=== PATIENT | female | born 1995 | race Caucasian/White ===

== ENCOUNTER 2018-12-17 21:42 | Inpatient (IN) ==
[2018-12-17] MEDS ORDERED: ZOFRAN ODT PO ONE (22:08)
[2018-12-17] MEDS ORDERED: ZOFRAN ODT ONE (22:08)
[2018-12-17 22:49] LABS: INFLUENZA A NEGATIVE (NEGATIVE); INFLUENZA B NEGATIVE (NEGATIVE)
[2018-12-17] MEDS ORDERED: NS 1,000 ML IV ONE ×2 (23:09→23:58)
[2018-12-17] MEDS ORDERED: PHENERGAN IV ONE (23:09)
[2018-12-17] MEDS ORDERED: SODIUM CHLORIDE 0.9% INJ ONE (23:09)
--- NOTE | 2018-12-17 23:17 | PROVIDER DOCUMENTATION ---
HPI-Abdominal Pain/GI Problem - General Chief Complaint: Flu Symptoms Stated Complaint: FLU LIKE SX Time Seen by Provider: 12/17/18 22:59 Source: patient Allergies/Adverse Reactions: Patient Allergies Allergy/AdvReac Type Severity Reaction Status Date / Time latex Allergy ITCHING Verified 11/21/16 14:15 Home Medications: Home Medication List Medication Instructions Recorded Confirmed Last Taken Type Hydrocodone/APAP 5 mg/325 mg 1 each PO Q6H PRN PRN #20 tablet 12/31/16 Unknown Rx [[place]-5] - History of Present Illness-ABD Nature of Presenting Problems: THIS IS A 23 YEAR OLD FEMALE CAME IN TODAY WITH CONCERN OF DIARRHEA FOR PAST 1 WEEK (DENIES ON ANTIBIOTICS IN PAST 6 MONTHS) AND ALSO TODAY STARTED HAVING SUDDEN ONSET OF NUMEROUS NONBLOODY VOMITING WHILE AT WORK TODAY AROUND 6PM AND ALSO FEELING NAUSEOUS. PATIENT DENIES FEVER, CHILL, NIGHT SWEATS, DIZZINESS, LIGHTHEADEDNESS, BLURRY VISION, CHEST DISCOMFORT, PALPITATION, DYSPNEA, ABDOMINAL DISCOMFORT, MYALIGA, ARTHRLAIAG, NEW RAHS/LESION, AND HEAT OR COLD INTOLERANCE. Abdominal Pain Onset Location: reports: other (DENIES ABDOMINAL DISCOMFORT.) Review of Systems - Adult - REVIEW OF SYSTEMS - ADULT Constitutional: denies: chills, fever, night sweats Eyes: reports: no symptoms reported Ears, Nose, Mouth & Throat: reports: no symptoms reported Cardiovascular: reports: no symptoms reported Respiratory: reports: no symptoms reported Gastrointestinal: reports: diarrhea, nausea, vomiting Genitourinary: reports: no symptoms reported Musculoskeletal: reports: no symptoms reported Integumentary: reports: no symptoms reported Neurological: reports: no symptoms reported Psychiatric: reports: no symptoms reported Endocrine: reports: no symptoms reported Hematologic/Lymphatic: reports: no symptoms reported Allergic/Immunologic: reports: no symptoms reported Past History - Adult - PAST MEDICAL HISTORY-ADULT Review of Records: reports: Old Records Reviewed - PRIOR SURGERIES/PROCEDURES Surgical/Procedure History: reports: tonsillectomy - IMMUNIZATION STATUS Childhood Immunizations: See Nurse Assessment Flu Vaccine: See Nurse Assessment - FAMILY HISTORY Family History: reviewed, not pertinent Physical Exam-General - PHYSICAL EXAM-ADULT Initial Vital Signs Reviewed: Yes - CONSTITUTIONAL General Appearance: alert, mild distress (VOMITING.) - EYES Eyes: PERRL/EOMI - HEAD, EARS, NOSE, MOUTH & THROAT HENMT: normocephalic/atraumatic, moist mucous membranes - NECK Neck: non-tender, full range of motion, supple - RESPIRATORY Respiratory: chest non-tender, lungs clear, normal breath sounds, no pleuratic chest pain, no respiratory distress, no accessory muscle use - CARDIOVASCULAR Cardiovascular: normal peripheral pulses, regular rate, rhythm, no edema, no gallop, no JVD, no murmur - GASTROINTESTINAL (ABDOMEN) Abdominal Exam: normal bowel sounds, non tender (NONTENDER ON PALPATION AT ANY QUADRANT.), soft - MUSCULOSKELETAL Back Exam: normal inspection, no CVA tenderness, no vertebral tenderness Extremity: normal range of motion, non-tender, normal gait - SKIN Integumentary: normal color, normal turgor - NEUROLOGIC Neurologic: grossly normal - PSYCHIATRIC Psych/Mental Status: normal mood/affect, normal thought content, normal thought process, oriented x 3 Progress - PLAN OF CARE/RESULTS Progress/Plan/Lab Results: Vital Signs - 8 hr 12/17/18 21:48 Temperature 97.6 F Pulse Rate 69 Respiratory Rate 18 Blood Pressure 146/081 O2 Sat by Pulse Oximetry 100 Laboratory Results - last 24 hr 12/17/18 22:10 Influenza A (Rapid) NEGATIVE Influenza B (Rapid) NEGATIVE Orders Category Date Time Status ABDOMEN FLAT/UPRIGHT [RAD] Stat Exams 12/17/18 23:08 Ordered AMYLASE [CHEM] Stat Lab 12/17/18 23:08 Ordered C DIFF ANTIGEN PL Stat Lab 12/17/18 23:10 Ordered CBC WITH ELECTRONIC DIFF [HEME] Stat Lab 12/17/18 23:08 Uncollected COMPREHENSIVE METABOLIC PANEL [CHEM] Stat Lab 12/17/18 23:08 Uncollected Flu [INFLUENZA SCREEN PL] Stat Lab 12/17/18 22:10 Completed LIPASE [CHEM] Stat Lab 12/17/18 23:08 Uncollected MAGNESIUM [CHEM] Stat Lab 12/17/18 23:[address] W/POSS RFLX CULT [URINALYSIS] Stat Lab 12/17/18 23:08 Uncollected URINE DRUG SCREEN PL Stat Lab 12/17/18 23:13 Uncollected 0.9% Sodium Chloride Inj [Ns] 1,000 ml Med 12/17/18 23:09 Active IV 999 mls/hr Ondansetron Odt [Zofran Odt] Med 12/17/18 22:08 Discontinued 4 mg .ROUTE .STK-MED ONE Ondansetron Odt [Zofran Odt] Med 12/17/18 22:08 Discontinued 4 mg PO NOW ONE Promethazine [Phenergan] Med 12/17/18 23:09 Discontinued 25 mg IV NOW ONE Sodium Chloride 0.9% Med 12/17/18 23:09 Discontinued 10 ml INJ NOW ONE Result Diagrams: 12/17/18 23:15 12/17/18 23:15 - REASSESSMENT Reassessment #1 Time Reassessed: 01:25 Status: other (PATIENT IS RESTING COMOFRTABLY IN BED IN NO DISTRESS; STATES FLUID HELPS. PENDING FOR CT RESULT TO RETURN. PATIENT POSITIVE FOR CANNABIS; WHICH CAN CERTAINLY CAUSE HER VOMITING.) Reassessment #2 Time Reassessed: 02:11 Status: other (SPOKE TO HOSPITALIST; APPRECIATE THEIR ASSISTANCE.) Departure - Departure Date of Disposition Decision: 12/18/18 Time of Disposition Decision: 02:12 DIAGNOSIS: Vomiting, Elevated WBCs Disposition: ADMITTED INPATIENT 09 Certified Medical Emergency: Emergent Condition: Fair Referrals and Follow-Ups: None,PCP [Primary Care Provider] - - Critical Care Note This patient required my direct & personal management of CC.: No Attestation - Physician/ ZOË Attestation Patient care was provided by Advanced Practice Provider:: No The physician spent face to face time with patient:: Yes Advanced Practice Provider documentation review:: Supervising physician onsite and consulted in the evaluation and care of this patient. The physician did have a face to face encounter with the patient.
[2018-12-17 23:37] LABS: BASO# 0.02 X1000 (0.0-0.2); BASO% 0.1 % (0.0-0.8); HEMATOCRIT 37.2 % (37.0-47.0); IMM GRAN# 0.06 X1000 (0.0-0.04); IMM GRAN% 0.3 % (0.0-0.5); LYMPH# 1.27 X1000 (1.2-3.4); LYMPH% 5.8 % (20.5-51.1); MCH 29.4 PG (27-31); MCHC 34.9 g/dL (33-37); MCV 84.2 FL (81-99); MONO# 0.57 X1000 (0.11-0.59); MONO% 2.6 % (1.7-9.3); MPV 11.2 FL (7.4-10.4); NEUT# 20.07 X1000 (1.4-6.5); NEUT% 91.2 % (42.2-75.2); PLT 196 X1000 (130-400); RBC 4.42 XMIL (4.2-5.4); RDW 12.1 % (11.5-14.5); WBC 21.99 X1000 (4.8-10.8)
[2018-12-17 23:53] LABS: AGAP 14; ALBUMIN 4.6 g/dL (3.5-5.0); ALKALINE PHOSPHATASE 57 U/L (32-104); AMYLASE 32 U/L (20-200); BUN 13 mg/dL (8-22); CALCIUM 8.6 mg/dL (8.8-10.2); CHLORIDE 102 mmol/L (98-107); COSMO 278; CREATININE 0.6 mg/dL (0.5-0.9); ESTIMATED GFR > 60; GLUCOSE 174 mg/dL (70-104); GOT 31 U/L (10-30); GPT 28 U/L (10-36); LIPASE 13 U/L (13-60); MAGNESIUM 1.9 mg/dL (1.5-2.7); POTASSIUM 4.6 mmol/L (3.5-5.1); SODIUM 137 mmol/L (136-145); TCO2 21 mmol/L (25-35); TOTAL PROTEIN 6.7 g/dL (6.3-8.3)
[2018-12-18 00:24] LABS: BILIRUBIN URINE NEGATIVE (NEGATIVE); BLOOD URINE NEGATIVE (NEGATIVE); CLARITY SL. CLOUDY (CLEAR); COLOR YELLOW; KETONE URINE 3+(Large) mg/dL (NEGATIVE); LEUKOCYTES URINE NEGATIVE (NEGATIVE); NITRITE URINE NEGATIVE (NEGATIVE); PROTEIN URINE NEGATIVE (NEGATIVE); UROBILINOGEN URINE NORMAL
[2018-12-18 00:26] LABS: UR AMPHETAMINES QUAL NONE DETECTED (NONE DETECT); UR BARBITUATES QUAL NONE DETECTED (NONE DETECT); UR BENZODIAZEPIN QUAL NONE DETECTED (NONE DETECT); UR CANNABINOIDS QUAL PRESUMPTIVE POSITIVE (NONE DETECT); UR COCAINE QUAL NONE DETECTED (NONE DETECT); UR METHADONE QUAL NONE DETECTED (NONE DETECT); UR METHAMPHETAMINE QUAL NONE DETECTED (NONE DETECT); UR OPIATES QUAL NONE DETECTED (NONE DETECT); UR OXYCODONE QUAL NONE DETECTED (NONE DETECT); UR PCP QUAL NONE DETECTED (NONE DETECT); UR PROPOXYPHENE QUAL NONE DETECTED (NONE DETECT); UR TCA QUAL NONE DETECTED (NONE DETECT)
[2018-12-18 00:28] LABS: URINE BACTERIA 4+ /HFP; URINE EPITHELIAL CELLS >10 /HPF (<10); URINE RBC <10 /HPF (<10); URINE SOURCE CLEAN CATCH; URINE WBC <10 /HPF (<10)
[2018-12-18] MEDS ORDERED: ZOFRAN IM ONE (02:13)
[2018-12-18] MEDS ORDERED: ZOFRAN IV ONE (02:19)
[2018-12-18] MEDS ORDERED: LOMOTIL PO PRN (08:09)
[2018-12-18] MEDS: ROCEPHIN 1 GM in NS 50 ML IV SCH (09:27)
[2018-12-18] MEDS: ZOFRAN IV PRN (09:27)
[2018-12-18] MEDS: NS 1,000 ML IV SCH (09:28)
--- NOTE | 2018-12-18 09:39 | HISTORY AND PHYSICAL ---
PRIMARY CARE PHYSICIAN: None. CHIEF COMPLAINT: Nausea, vomiting, and diarrhea for 1 week that has progressively worsened. HISTORY OF PRESENTING ILLNESS: This is a 23-year-old female who presents to [facility] ER with complaints of nausea, vomiting, and diarrhea for 1 week that has progressively worsened. It is noted that she smokes marijuana 3 to 4 times a week, drinks beer 3 times a week, and smokes a pack a day of cigarettes. She denied any dizziness, lightheadedness, blurred vision, abdominal pain. No dark, tarry stools. No melena or hematochezia. Her workup showed a white blood cell count of 21.99. Urinalysis was negative, except for 4+ bacteria, but she did have greater than 10 epithelial cells. Urine drug screen was positive for cannabinoids. Influenza A and B were negative. We did do a CT of the abdomen and pelvis that was read as normal, so she was admitted for further evaluation and treatment. PAST MEDICAL HISTORY: Spina bifida. PAST SURGICAL HISTORY: Tonsillectomy, double inguinal hernia repair, and a cholecystectomy. FAMILY HISTORY: Reviewed and noncontributory. SOCIAL HISTORY: She currently lives with her dad. Smokes 1 pack of cigarettes, and has done so for the past 12 years. Drinks beer 3 times a week, and smokes marijuana 3 to 4 times a week. ALLERGIES: Latex. HOME MEDICATIONS: She does not take any medications on a routine basis. IMAGING AND LABORATORY DATA: White blood cell count of 21.99, hemoglobin 13, hematocrit 37.2, platelets 196,000. Sodium 137, potassium 4.6, chloride 102, CO2 of 21, BUN of 13, creatinine 0.6, glucose 174. Magnesium 1.9. Lipase 13, amylase 32. Plasma lactate of 1.1. Urinalysis was negative, except for 4+ bacteria, but was also noted to have greater than 10 epithelial cells. Urine drug screen was presumptive positive for cannabinoids. Influenza A and B were both negative. CT of the abdomen and pelvis was read as normal. REVIEW OF SYSTEMS: She denied any fever, chills, blurred vision, dizziness, chest pain, coughing, shortness of breath. She was positive for nausea, vomiting, and diarrhea. Denied any abdominal pain. Denied any burning or hurting with urination. PHYSICAL EXAMINATION: VITAL SIGNS: On arrival, temperature of 97.6 degrees, pulse 69, respirations 18, blood pressure 146/81, saturating 100% on room air. GENERAL: This is a 23-year-old female who is lying in the bed and answers questions appropriately. HEENT: Normocephalic and atraumatic. Normal ENT inspection. Oropharynx and nares are clear. Eyes: Pupils are equal, round, and reactive to light and accommodation. Extraocular movements are intact. NECK: Normal inspection. Normal range of motion. LUNGS: Clear to auscultation bilaterally with equal lung expansion and chest wall movement. HEART: Regular rate and rhythm. No murmurs, rubs, or gallops. ABDOMEN: Soft, nontender, nondistended. Bowel sounds are present x4 quadrants. MUSCULOSKELETAL: She is noted to have spina bifida. NEUROLOGICAL: Cranial nerves II through XII appear grossly intact. ASSESSMENT: 1. Nausea, vomiting, and diarrhea. 2. Leukocytosis. 3. Marijuana abuse. 4. Tobacco abuse. PLAN: She was admitted to the medical unit, placed on a clear liquid diet. We are going to check a Clostridium difficile antigen. Urine culture is pending. We gave her Lomotil 1 p.o. 4 times daily p.r.n., normal saline at 125 mL an hour, Zofran 4 mg IV every 4 hours p.r.n., Rocephin 1 gram IV every 24 hours. She was noted to have some dark bile vomitus in her basin this morning. This certainly could be cyclical vomiting secondary to her marijuana abuse. We will recheck CBC and BMP in the a.m., and further orders after being seen by attending. Dictated by DUSTIN Sales for Rebecca Mckenna MD cc: DUSTIN Sales MD
--- NOTE | 2018-12-18 09:42 | Diag Imaging Result Doc PS360 ---
CT ABD/PELVIS W/IV CONT ONLY - 12/18/2018 INDICATION: N/V + WBC OF 21 COMPARISON: 12/29/2016 FINDINGS: The lung bases are clear and the heart size is normal. Stable mild nonspecific periportal edema. There are cholecystectomy clips. No biliary dilation. Other abdominal organs are all normal. No bowel obstruction or inflammation. There is a right ovarian cyst in the posterior pelvis measuring 4.3 cm. Urinary bladder and rectum are normal. Bony structures are intact. IMPRESSION: 1. Right adnexal cyst consistent with an ovarian cyst. Consider follow-up pelvic ultrasound in six weeks. 2. Nonspecific periportal edema in the liver, stable from the prior exam. This exam was performed using automated exposure control, adjustment of mA or kV according to patient size, and/or use of iterative reconstruction technique Electronically signed by Rajendra Martin 12/18/2018 9:40 AM
--- NOTE | 2018-12-18 12:17 | HISTORY AND PHYSICAL ---
ADDENDUM REPORT I saw the patient [id number] and fully agree with the assessment and plan of nurse practitioner Pamela Durant. This is a 23-year-old female who has been admitted with intractable nausea and vomiting, along with having some diarrhea and leukocytosis. She has been having marijuana abuse as well, which could contribute to her acute illness. We are going to give her clear liquids, along with IV fluid. Clostridium difficile studies are pending at this time. We will give her Lomotil on an as-needed basis for diarrhea and give her Zofran IV as needed for nausea and vomiting. Furthermore, she is being given Rocephin IV for any bacterial infection. She can probably be discharged home in the next day or 2 if she gets better. cc: Rebecca Mckenna MD
[2018-12-19 06:39] LABS: BASO# 0.01 X1000 (0.0-0.2); BASO% 0.1 % (0.0-0.8); EOS# 0.03 X1000 (0.0-0.7); EOS% 0.3 % (0.0-10.0); IMM GRAN# 0.01 X1000 (0.0-0.04); IMM GRAN% 0.1 % (0.0-0.5); LYMPH% 22.7 % (20.5-51.1); MCH 28.7 PG (27-31); MCHC 33.3 g/dL (33-37); MCV 86.1 FL (81-99); MONO# 0.73 X1000 (0.11-0.59); MONO% 6.9 % (1.7-9.3); MPV 11.7 FL (7.4-10.4); NEUT% 69.9 % (42.2-75.2); PLT 172 X1000 (130-400); RBC 4.18 XMIL (4.2-5.4); RDW 12.4 % (11.5-14.5); WBC 10.58 X1000 (4.8-10.8)
[2018-12-19] MEDS: NS 1,000 ML IV SCH ×3 (06:54→21:43)
[2018-12-19 06:57] LABS: AGAP 12; BUN 12 mg/dL (8-22); CALCIUM 7.6 mg/dL (8.8-10.2); CHLORIDE 109 mmol/L (98-107); COSMO 281; CREATININE 0.5 mg/dL (0.5-0.9); ESTIMATED GFR > 60; GLUCOSE 96 mg/dL (70-104); POTASSIUM 3.9 mmol/L (3.5-5.1); SODIUM 141 mmol/L (136-145); TCO2 20 mmol/L (25-35)
[2018-12-19] MEDS: ZOFRAN IV PRN ×4 (08:26→23:40)
[2018-12-19] MEDS: ROCEPHIN 1 GM in NS 50 ML IV SCH (08:26)
[2018-12-19] MEDS ORDERED: G.I. COCKTAIL PO ONE (09:56)
--- NOTE | 2018-12-19 22:06 | PROGRESS NOTE ---
DATE: 12/19/2018 SUBJECTIVE: Patient states she is still having some nausea, but notes that overall she is feeling better. Denies any chest pain, palpitations currently. PHYSICAL EXAMINATION: Vital Signs: Temperature 98, pulse 58, respiratory 18, BP 116/59. General: Patient is awake, alert. She is currently in no respiratory distress. HEENT: Normocephalic. Neck: Supple. CARDIOVASCULAR: Regular rate. No murmurs. Chest: Clear. Abdomen: Soft. Extremities: Moves all extremities. ASSESSMENT: 1. Nausea, vomiting. 2. Leukocytosis. 3. Marijuana use and abuse, which is likely contributing to her nausea. 4. Chronic tobacco abuse. PLAN: The patient's leukocytosis is resolved. Her symptoms seem to be improving. We will attempt to advance her diet and if she tolerates, hopefully can discharge home today or later tomorrow. cc: Arie Costa MD
[2018-12-20] MEDS: NS 1,000 ML IV SCH ×3 (02:11→15:58)
[2018-12-20 06:51] LABS: HEMATOCRIT 38.4 % (37.0-47.0); MCH 28.5 PG (27-31); MCHC 33.9 g/dL (33-37); MCV 84.2 FL (81-99); MPV 11.6 FL (7.4-10.4); RBC 4.56 XMIL (4.2-5.4); RDW 12.2 % (11.5-14.5); WBC 9.42 X1000 (4.8-10.8)
[2018-12-20 07:03] LABS: AGAP 11; BUN 10 mg/dL (8-22); CALCIUM 7.6 mg/dL (8.8-10.2); CHLORIDE 107 mmol/L (98-107); COSMO 274; CREATININE 0.5 mg/dL (0.5-0.9); ESTIMATED GFR > 60; GLUCOSE 80 mg/dL (70-104); SODIUM 138 mmol/L (136-145); TCO2 20 mmol/L (25-35)
[2018-12-20] MEDS: ZOFRAN IV PRN ×2 (07:26→15:59)
[2018-12-20] MEDS: ROCEPHIN 1 GM in NS 50 ML IV SCH (08:21)
[2018-12-20] MEDS: CARAFATE PO SCH ×2 (15:58→21:31)
[2018-12-20] MEDS ORDERED: PHENERGAN IV PRN (18:17)
[2018-12-20] MEDS ORDERED: SODIUM CHLORIDE 0.9% INJ PRN (18:17)
--- NOTE | 2018-12-20 23:06 | PROGRESS NOTE ---
DATE: 12/20/2018 SUBJECTIVE: The patient notes that her nausea this morning is better, however, when checked on again this evening she did have a couple of episodes of vomiting. She has not really been able to keep down anything orally other than liquids occasionally. OBJECTIVE: Temperature 98 degrees, pulse 58, respiratory rate 20, BP 116/67. General: The patient is awake, alert. She continues to have nausea and had episodes of vomiting today. HEENT: Normocephalic. Neck supple. CV: Regular rate. Chest clear. Abdomen is soft diffusely but mildly tender. Nondistended. Extremities: Moves all extremities. ASSESSMENT: 1. Nausea and vomiting. 2. Leukocytosis. 3. Chronic marijuana abuse. 4. Tobacco abuse. PLAN: The patient's white count has actually improved, from 21 down to 9. We had hoped that her nausea would improve; however, she continued to have episodes of vomiting today; therefore, we will ask Gastroenterology to see in consultation as she certainly may need an EGD to rule out any other pathology. cc: Arie Costa MD
[2018-12-21] MEDS: NS 1,000 ML IV SCH (00:10)
[2018-12-21 06:53] LABS: HEMATOCRIT 36.4 % (37.0-47.0); HEMOGLOBIN 12.2 g/dL (12.0-16.0); MCHC 33.5 g/dL (33-37); MCV 83.7 FL (81-99); MPV 12.2 FL (7.4-10.4); RBC 4.35 XMIL (4.2-5.4); RDW 11.9 % (11.5-14.5); WBC 8.42 X1000 (4.8-10.8)
[2018-12-21 07:11] LABS: AGAP 14; BUN 7 mg/dL (8-22); CALCIUM 7.3 mg/dL (8.8-10.2); CHLORIDE 107 mmol/L (98-107); COSMO 271; CREATININE 0.5 mg/dL (0.5-0.9); ESTIMATED GFR > 60; GLUCOSE 76 mg/dL (70-104); POTASSIUM 3.8 mmol/L (3.5-5.1); SODIUM 137 mmol/L (136-145); TCO2 16 mmol/L (25-35)
[2018-12-21] MEDS ORDERED: LOMOTIL PO PRN (08:07)
[2018-12-21] MEDS ORDERED: PHENERGAN IV PRN (08:08)
[2018-12-21] MEDS ORDERED: ZOFRAN IV PRN (08:09)
[2018-12-21] MEDS ORDERED: ROCEPHIN 1 GM in NS 50 ML IV SCH (09:00)
[2018-12-21] MEDS ORDERED: NS 1,000 ML IV SCH (09:00)
[2018-12-21] MEDS ORDERED: XYLOCAINE-MPF 2% ONE (10:19)
[2018-12-21] MEDS ORDERED: DIPRIVAN 1% ONE (10:19)
--- NOTE | 2018-12-21 10:36 | GASTROENTEROLOGY CONSULTATION ---
DATE: 12/21/2018 REASON FOR CONSULTATION: Nausea, vomiting, diarrhea. HISTORY OF PRESENT ILLNESS: Ms. Thor Giraldo is a 23-year-old woman with past medical history of acute cholecystitis, status post cholecystectomy, who presents with 1 week of GI symptoms including nausea, vomiting and diarrhea. The patient reports that about a week ago she developed profuse explosive nonbloody watery diarrhea up to 3 times a day with associated lower abdominal cramping. Prior to onset, she was at her usual state of health. About 5 days into her symptoms, she developed nonbloody, nonbilious emesis aggravated by eating or p.o. intake. She describes having up to 10 episodes per day with retching and lower sternal chest pain with episodes. She says her symptoms are similar to when she presented with acute cholecystitis a few years ago. She denies any sick contacts, recent travel, changes in diet. No new medications. She takes NSAIDs rarely. She drinks socially, but not on a regular basis. She does smoke marijuana. On presentation she was found to have leukocytosis with a white count of 21. Initial workup including LFTs, lipase, chemistries and hemoglobin were unremarkable. The UA showed ketones in urine, but no signs of infection. U-Tox was positive for cannabinoids. Flu test was negative. CT of the abdomen and pelvis showed right adnexal cyst consistent with ovarian cysts. Follow-up ultrasound was recommended in 6 weeks. Nonspecific periportal edema in the liver was seen. No signs of biliary obstruction or acute luminal pathology. Since admission her diarrhea has resolved. She continues to have vomiting with p.o. intake. Currently, she has not vomited since she has been n.p.o. for possible EGD today. PAST MEDICAL HISTORY: As per HPI. PAST SURGICAL HISTORY: She has a history of spina bifida status post spinal cord release during infancy. FAMILY HISTORY: No family history of GI malignancies. Mother has a history of muscular dystrophy. SOCIAL HISTORY: She smokes 1-1/2 packs per day. She drinks alcohol socially and smokes marijuana regularly. MEDICATIONS: No medications. ALLERGIES: No known drug allergies. REVIEW OF SYSTEMS: As per HPI, otherwise 12 point review of systems negative. She does report having some cough as well upon onset of her symptoms. PHYSICAL EXAMINATION: Vital Signs: Temperature 98.6 degrees, blood pressure 132/70, heart rate 63, respiratory rate 16, O2 saturation 100% on room air. General: The patient is a well- nourished, well-developed woman in no acute distress. HEENT: Sclerae anicteric. Moist mucous membranes. Extraocular motor intact. Neck: Supple. No JVD and no lymphadenopathy. Cardiac: Regular rate and rhythm. Normal S1 and S2. No murmurs, rubs, or gallops. Lungs: Clear to auscultation bilaterally. No wheezing or crackles. Abdomen: Soft, nondistended. Minimal tenderness to palpation in the epigastric region. Bowel sounds are present. No rebound or guarding. Extremities: No clubbing, cyanosis, or edema. Neurologic: Cranial nerves 2-12 intact. Nonfocal. LABS: Currently white count of 8.4, hemoglobin of 12.2, platelets of 157,000. Sodium 137, potassium 3.8, chloride 107, bicarbonate 16, BUN of 7, creatinine 0.5. ASSESSMENT AND PLAN: Ms. Thor Giraldo is a 23-year-old woman, who presents with acute nausea, vomiting, diarrhea, suspicious for a viral gastroenteritis. Diarrhea has resolved since admission. The patient continues to have intractable nausea and vomiting with oral intake. Labs notable for leukocytosis, now resolved without need for antibiotics. She was started on ceftriaxone yesterday empirically, although urine culture on presentation was negative for urinary tract infection. She is on antiemetics with Zofran 4 mg every 4 hours as needed, as well as Phenergan 12.5 mg every 4 hours as needed. She is on Carafate as well 1 gram before meals and at bedtime, and Lomotil for diarrhea, as well as intravenous fluids. Differential includes esophagitis, peptic ulcer disease, Helicobacter pylori gastritis, duodenitis. She does not appear to have hepatobiliary process going on, given normal liver function tests and lipase, as well as imaging. There was some adin portal edema that appears to be nonspecific. No evidence of stones or common bile duct dilation. She is currently on nothing by mouth. We will plan for diagnostic esophagogastroduodenoscopy today. She would likely need to be started on a proton pump inhibitor once daily. Will decide on further recommendations postprocedure. Her low bicarbonate is likely secondary to vomiting. She is currently on antiemetics for this. With her tobacco abuse, we recommended smoking cessation as well as cessation of marijuana use as well given possibility of developing cyclic vomiting syndrome in the future, although I would not expect this with diarrhea as her presenting symptom as well. Thank you for this consult. We will follow with you. Please call with any questions, concerns.
--- NOTE | 2018-12-21 11:12 | OPERATIVE NOTE ---
PROCEDURE DATE: 12/24/2018 PROCEDURE: Upper GI endoscopy. PROVIDER: Severo Mercedes INDICATIONS: Nausea, vomiting, diarrhea. MEDICATIONS: Monitored anesthesia care. DESCRIPTION OF PROCEDURE: Prior to the procedure, a his history and physical was performed and patient medication and allergies were reviewed. The patient's tolerance of previous anesthesia was also reviewed. The risks and benefits of the procedure and the sedation options and risks were discussed with the patient. All questions were answered and informed consent was obtained. After reviewing the risks and benefits, the patient was deemed in satisfactory condition to undergo the procedure. The endoscope was passed under direct visualization. Throughout the procedure, the patient's blood pressure, pulse and oxygen saturations were monitored continuously. The endoscope was introduced through the mouth and advanced to the second part of the duodenum. The upper GI endoscopy was accomplished without difficulty. The patient tolerated the procedure well. COMPLICATIONS: No immediate complications. ESTIMATED BLOOD LOSS: Minimal. FINDINGS: Esophagus revealed a small hiatal hernia within the stomach. There was moderate erosive gastritis with scattered erosions in the antrum with associated hematin. Random gastric biopsies were obtained with cold biopsy forceps to rule out H. pylori infection. Retroflexion in the stomach revealed hiatal hernia within the duodenal bulb and second portion of the duodenum. There was some mild duodenitis. No evidence of ulceration. Random biopsies were obtained to rule out celiac disease. IMPRESSION: 1. Small hiatal hernia. 2. Moderate gastritis with erosions, biopsied. 3. Duodenitis, biopsied. RECOMMENDATIONS: 1. We will start IV Protonix 40 mg b.i.d. avoid NSAIDs in aspirin. 2. Start patient on clear liquid diet and advance as tolerated. 3. Continue antiemetics as needed for nausea. 4. We will follow with you. 5. Please call with any questions or concerns.
[2018-12-21] MEDS ORDERED: LR 1,000 ML IV SCH (11:30)
[2018-12-21] MEDS: CARAFATE PO SCH ×3 (11:52→22:36)
[2018-12-21] MEDS: PROTONIX IV SCH ×2 (11:55→22:36)
[2018-12-21] MEDS: SODIUM CHLORIDE 0.9% INJ PRN (11:56)
--- NOTE | 2018-12-21 14:08 | PROGRESS NOTE ---
DATE: 12/21/2018 INTERVAL HISTORY: Ms. Giraldo was transferred from [facility] for need for GI evaluation. By the time I saw her, she had undergone an EGD for intractable nausea and vomiting. The EGD had detected a small hiatal hernia, moderate gastritis with erosion for which biopsies were undertaken, and duodenitis. SUBJECTIVE: She has had another episode of nausea and she threw up. We discussed about the EGD findings. We discussed about tobacco cessation and marijuana cessation. I answered all of her questions. VITAL SIGNS: Currently detect temperature of 98 degrees, pulse 58, respiratory rate 24, blood pressure 126/62, saturating 100% on room air. The patient currently complains of some nausea and some periumbilical abdominal pain without any guarding or rigidity. She denies any chest pain or shortness of breath. PHYSICAL EXAMINATION: General: Does not appear in any acute distress. Oral cavity is moist. S1, S2 normal. No murmur or gallop. Air entry bilaterally equal. No wheeze, rhonchi, or crackles. Abdomen is soft. There is periumbilical tenderness without any guarding or rigidity. No lower extremity edema. LABS: Suggestive of normal WBC, hemoglobin, and platelet count. Normal electrolytes except slightly high chloride with low bicarbonate and hypocalcemia. ASSESSMENT AND PLAN: 1. Intractable nausea and vomiting in the setting of acute erosive gastritis. Continue intravenous Protonix twice a day as per gastroenterology's recommendation with sucralfate. Follow up with final biopsy results as an outpatient. Continue clear liquid diet. Continue intravenous Zofran and Phenergan every 4 hours as needed. 2. Possible metabolic acidosis with low bicarbonate and then slight hyperchloremia. This is likely in the setting of intravenous fluid resuscitation plus bicarbonate loss during vomiting. Change intravenous fluids to lactated Ringer's and follow up with BMP. 3. Hypocalcemia because of intravenous fluids. Start patient on calcium supplementation. 4. Disposition. The patient remains inside the hospital as we manage her nausea and vomiting. Plan of care was discussed with the patient. All of her questions have been answered. cc: Gregory Huddleston MD
[2018-12-21] MEDS: TUMS PO SCH ×2 (16:24→22:35)
--- NOTE | 2018-12-21 23:25 | PROGRESS NOTE ---
DATE: 12/21/2018 SUBJECTIVE: Patient notes she is still nauseated. She had an episode last night of emesis. Denies any blood in her emesis. Denies any fevers or chills. Denies any diarrhea or constipation. Still having some mild vague abdominal pain. Notes that the nausea has actually been better since she has nothing to eat or drink overnight. OBJECTIVE: Vital Signs: Temperature 93, pulse 83, respiratory 18, BP 130/67. General: Patient is awake, alert. She is in no current respiratory distress. HEENT: Normocephalic. Neck: Supple. Cardiovascular: Regular rate. Chest: Clear nonlabored. Abdomen: Soft, diffusely tender. Extremities: Moves all extremities. ASSESSMENT: 1. Persistent nausea and vomiting. 2. Leukocytosis, resolved. White count was a max of 21, currently down to 9. 3. Chronic marijuana use and abuse. 4. Chronic tobacco use and abuse. PLAN: At this point this patient's symptoms have not resolved. We will transfer to [facility] for GI evaluation and likely EGD. We will continue n.p.o. until then. cc: Arie Costa MD
[2018-12-22] MEDS: CARAFATE PO SCH ×5 (05:53→20:51)
[2018-12-22] MEDS: TUMS PO SCH ×3 (07:51→20:51)
[2018-12-22] MEDS: PROTONIX IV SCH ×3 (07:52→20:50)
[2018-12-22] MEDS: SODIUM CHLORIDE 0.9% INJ PRN (07:52)
--- NOTE | 2018-12-22 12:28 | GASTROENTEROLOGY PROGRESS NOTE ---
DATE: 12/22/2018 SUBJECTIVE: Patient is resting in bed. She is feeling better. Her nausea and vomiting have improved. She is moving her bowels. She denies any abdominal pain. OBJECTIVE: Vital signs: Temperature 98.4 degrees, pulse rate 72, respiratory rate 20, blood pressure 137/70, saturating 100% on room air. Weight: Body weight 110 pounds, BMI 18.9 kg/m2. General: Moderately built, nourished, lying in bed, in no acute distress. HEENT: No pallor. No icterus. Pupils equal, react to light. Neck: Supple. Abdomen: Soft, nontender, nondistended. No guarding. No rebound. Extremities: No cyanosis or clubbing. Neurologic: She is alert, awake, oriented x3. DIAGNOSTIC STUDIES: Hemoglobin 12.2, hematocrit 36.4, white count of 8.42, platelet count of 157,000. Sodium 137, potassium 3.8, chloride 107, bicarbonate 16, anion gap 14, BUN of 7, creatinine 0.5, glucose of 76, calcium is 7.3. test is negative. Toxin positive for cannabinoids. Urine culture showed no growth. IMPRESSION AND PLAN: 1. Intractable nausea and vomiting, which have improved. The patient will continue on Protonix twice daily. On discharge, she will need to be on Protonix once daily for 3 months and then wean down to Zantac 150 mg p.o. b.i.d. 2. The patient was counseled to avoid any non-steroidal antiinflammatory drugs (NSAIDs) like aspirin. 3. Patient has a small hiatal hernia. She will continue follow gastroesophageal reflux life changes. 4. She will continue to advance her diet as tolerated. 5. The patient follow up in the clinic with Dr. Schaffer in 3 weeks for review of the biopsy results. 6. Bowel regimen with Dulcolax once daily. The above plans were discussed with the patient, and all questions were answered. Please call us with any further questions. cc: MD Gregory Gomes MD MTDD
--- NOTE | 2018-12-22 15:43 | PROGRESS NOTE ---
DATE: 12/22/2018 INTERVAL HISTORY: The patient has not had any more nausea or vomiting since morning. She has been tolerating a clear liquid diet well. Discussed about following up with GI outpatient, advancing diet. I answered all of the questions. I also discussed about following up with biopsy results as an outpatient. The patient denies any more abdominal pain. OBJECTIVE: Vital signs: Temperature 98.4 degrees, pulse 72, respiratory rate 20, blood pressure 137/70, saturating 100% on room air. General: Patient appears cachectic, but not in any acute distress. HEENT: Oral cavity is moist. Lungs: Air entry bilaterally equal. No wheeze, rhonchi, crackles. Cardiovascular: S1, S2 normal. No murmur, rub, or gallop. Abdomen: Soft, nontender. Active bowel sounds. Extremities: No lower extremity edema. LABS: Suggestive of normal blood count and normal electrolytes except low calcium for which she is getting repletion. No new microbiological data. No new imaging. ASSESSMENT AND PLAN: 1. Intractable nausea and vomiting in the setting of acute erosive gastritis. Continue intravenous Protonix b.i.d. At the time of discharge we will change to omeprazole 40 mg once a day according to GI recommendations. Follow up with final biopsy results as an outpatient. Advance diet to full liquid. Continue intravenous Zofran and Phenergan every 4 hours as needed. 2. Possible metabolic acidosis with low bicarbonate and slight hyperchloremia yesterday. I will follow up with BMP today. This was likely in the setting of intravenous fluid resuscitation and bicarbonate loss due to vomiting. 3. Hypocalcemia because of intravenous fluids. Continue calcium supplement. Follow up BMP. 4. Disposition. I will advance patient's diet to GI soft tomorrow morning and if she is tolerating well, my plan is to discharge her home tomorrow. Plan of care discussed with her. All of her questions have been answered. cc: Gregory Huddleston MD
[2018-12-22 16:50] LABS: AGAP 12; BUN 6 mg/dL (8-22); CALCIUM 8.7 mg/dL (8.8-10.2); CHLORIDE 104 mmol/L (98-107); COSMO 271; CREATININE 0.5 mg/dL (0.5-0.9); ESTIMATED GFR > 60; GLUCOSE 86 mg/dL (70-104); MAGNESIUM 1.8 mg/dL (1.5-2.7); POTASSIUM 3.4 mmol/L (3.5-5.1); SODIUM 137 mmol/L (136-145); TCO2 21 mmol/L (25-35)
[2018-12-22] MEDS ORDERED: KLOR-CON PO ONE (16:56)
[2018-12-22] MEDS: MIRALAX PO SCH (18:21)
[2018-12-22] MEDS ORDERED: DULCOLAX PR SCH (21:00)
[2018-12-23] MEDS: CARAFATE PO SCH ×2 (06:02→12:21)
[2018-12-23] MEDS: TUMS PO SCH (10:25)
[2018-12-23] MEDS: PROTONIX IV SCH (10:26)
[2018-12-23] MEDS: SODIUM CHLORIDE 0.9% INJ PRN (10:26)
[2018-12-23] MEDS: MIRALAX PO SCH (10:28)
[2018-12-23] MEDS ORDERED: FLU VACCINE IM ONE (15:36)
[2018-12-23 15:43] VITALS: BP 122/63
[2018-12-23] MEDS ORDERED: PREVNAR 13 IM ONE (16:18)
[2018-12-23] MEDS ORDERED: PNEUMOVAX 23 IM ONE (16:26)
--- NOTE | 2018-12-24 08:31 | DISCHARGE SUMMARY ---
ADMISSION DATE: 12/18/2018 DISCHARGE DATE: 12/23/2018 DISCHARGE DIAGNOSES: 1. Intractable nausea and vomiting. 2. Acute erosive gastritis. 3. Metabolic acidosis, likely hyperchloremic acidosis due to intravenous fluid resuscitation with normal saline. 4. Hypocalcemia in the setting of intravenous fluid resuscitation. 5. Marijuana abuse. 6. History of spina bifida. CONSULTATION DURING HOSPITALIZATION: Gastroenterology, Dr. Schaffer. PROCEDURES DURING HOSPITALIZATION: Upper endoscopy on 12/21/2018 had suggested small hiatal hernia, moderate gastritis with erosion. Biopsies were taken which were negative for Helicobacter pylori and duodenitis, which was also biopsied for celiac disease. The final results were pending, but it did suggest inflammation. DISCHARGE MEDICATIONS: 1. MiraLAX 17 g p.o. daily p.r.n. for constipation. 2. Omeprazole 40 mg daily, 90 capsules. 3. Calcium carbonate 500 mg b.i.d., 30 capsules. 4. Ondansetron 4 mg every 6 hours p.r.n. for nausea and vomiting, 10 tablets. DISPOSITION: The patient has been provided a work slip for returning to work on 12/27/2018. She was advised to continue ambulation as tolerated and advance diet as tolerated, and then hopefully by December 27 she could return to work. DISCHARGE PHYSICAL EXAMINATION: Vitals: At the time of discharge, temperature 98.3 degrees, pulse 87, respiratory rate 16, blood pressure 122/63, saturating 99% on room air. General: Patient does not appear in any acute distress. Mouth: Oral cavity moist. Lungs: Air entry equal. No wheeze, rhonchi or crackles. Heart: S1, S2 normal. No murmur, rub or gallop. Abdomen: Soft, nontender. Extremities: No lower extremity edema. Neurologic: Alert and oriented x3. The patient was extensively counseled about not using any tobacco products, not using alcohol, not using any recreational substances, and she verbalized understanding. SIGNIFICANT LABS DURING HOSPITAL ADMISSION AND AT DISCHARGE: WBC count 8.4, hemoglobin 12.2, platelet 157. Electrolytes: Sodium 137, potassium 3.4 which was repleted, bicarbonate 21. BUN of 6, creatinine of 0.5, calcium of 8.7. MICROBIOLOGY DURING HOSPITAL ADMISSION: Urine culture did not have any growth. IMAGING DURING HOSPITAL ADMISSION: Abdominal pelvis CT on admission had right adnexal cyst consistent with an ovarian cyst. Followup with pelvic ultrasound in 6 weeks was recommended. HOSPITAL COURSE SUMMARY: Ms. Giraldo is a 23-year-old woman, who had presented to [facility] on December 18 with chief complaints of nausea, vomiting, and diarrhea of about 1 week duration, which was progressively getting worse. She smokes marijuana 3 to 4 times a week and drinks beer 3 times a week, and she used to smoke 1 pack of cigarettes daily. She did not have any dizziness, lightheadedness, blurred vision, abdominal pain. She did not have any dark or tarry stools or melena. Her urine drug screen was positive for cannabinoids. Influenza A and B were negative as per the documentation in the initial history note. CT scan of abdomen and pelvis was unremarkable. She was admitted for symptomatic treatment of nausea and vomiting. During hospital admission, she was resuscitated with intravenous fluids. However, her condition did not improve, and she continues to have persistent nausea and vomiting. So, she was transferred to [facility]. At [facility], she was initially kept on n.p.o. and underwent EGD which suggested acute erosive gastritis and duodenitis. She was continued on intravenous Protonix b.i.d. and sucralfate. After the EGD, she was slowly started on clear liquid diet. The patient was tolerating clear liquid diet, and her nausea and vomiting had slowly subsided. She did not have any more abdominal pain, and so her diet was advanced to full liquid diet, which she tolerated well. At the time of discharge, she was given prescription of omeprazole to continue for 3 months. Follow up with Gastroenterology. The plan was to switch her to famotidine b.i.d. after the course of omeprazole is over 3 months later. The patient was advised to stop using any recreational substances and follow up with clinical admissions manager. She was also advised to consider getting an ultrasound and followup for her ovarian cyst. Plan of care was discussed with her. All of her questions have been answered. TIME SPENT: More than 30 minute was spent in discharging this patient. cc: Gregory Huddleston MD
== END 2018-12-23 16:49 | disposition home or self-care (01) | DRG 392 ==
LOC: P.ED 21:42 → SUATTDRO 12-18 03:08 → P.MEDSURG 12-18 03:08 → 4N 12-21 08:05
PROVIDERS: ATTEND Internal Medicine
CPT/HCPCS: 74177; 80048; 80053; 80104; 80301; 80305; 81001; 81025; 82150; 83605; 83690; 83735; 85025; 85027; 87088; 87275; 87276; 87804; 88305; 88312; 88313; 90732; 96361; 96374; 96375; 99285; A9270; C9113; G0431; G0434; G0477; J0696; J2405; J2550; J7030; J7120; Q9967; S0164